=== PATIENT | male | born 1985 | race Caucasian/White ===

== ENCOUNTER 2019-03-08 15:42 | Emergency (ER) | payer OTHER ==
[~2019-03-08] VITALS: Ht 167.6 cm; Wt 66.2 kg
[2019-03-08] MEDS ORDERED: BISTOLIC (16:06)
[2019-03-08] MEDS ORDERED: VICTARVI (16:06)
== END 2019-03-08 21:43 | disposition home or self-care (01) ==
LOC: ER 15:42
DX: R10.9 Unspecified abdominal pain (principal); F41.0 Panic disorder [episodic paroxysmal anxiety]; R44.2 Other hallucinations